=== PATIENT | female | born 1990 | race Caucasian/White ===

== ENCOUNTER 2016-08-11 17:07 | Emergency (ER) | payer BC ==
[2016-08-11 18:29] VITALS: BP 111/69
--- NOTE | 2016-08-13 10:35 | UC ---
Skin Complaint HPI - HPI Summary HPI Summary: THREE WEEKS OF SPREADING RASH ON LEFT LEG; HAD BEEN EXPOSED TWO WEEKS AGO TO FRIEND WITH RINGWORM. HAS NOT TRIED ANYTHING FOR TREATMENT. - History of Current Complaint Chief Complaint: UCSkin Time Seen by Provider: 08/11/16 19:13 Stated Complaint: RASH Hx Obtained From: Patient Hx Last Menstrual Period: one month ago Onset/Duration: Gradual Onset, Lasting Weeks, Still Present Skin Exposure Onset/Duration: Weeks Ago Onset Severity: Mild Current Severity: Mild Pain Intensity: 1 Pain Scale Used: 0-10 Numeric Location: Generalized - LEFT LEG Aggravating: Nothing Alleviating: Nothing Associated Signs & Symptoms: Positive: Rash Related History: Possible Reaction to: Environmental Exposure - Allergy/Home Medications Allergies/Adverse Reactions: Allergies Allergy/AdvReac Type Severity Reaction Status Date / Time No Known Allergies Allergy Verified 08/11/16 18:30 Review of Systems Constitutional: Negative Skin: Rash Eyes: Negative ENT: Negative Respiratory: Negative Cardiovascular: Negative Gastrointestinal: Negative Genitourinary: Negative Motor: Negative Neurovascular: Negative Musculoskeletal: Negative Neurological: Negative Psychological: Negative All Other Systems Reviewed And Are Negative: Yes PMH/Surg Hx/FS Hx/Imm Hx Previously Healthy: Yes - Surgical History Surgical History: Yes Surgery Procedure, Year, and Place: right hip surgery - Family History Known Family History: Negative: Diabetes Family History: NON CONTRIBUTORY - Social History Occupation: Employed Full-time Lives: With Family Alcohol Use: Occasionally Substance Use Type: None Smoking Status (MU): Never Smoked Tobacco - Immunization History Most Recent Influenza Vaccination: never Most Recent Tetanus Shot: unsure Physical Exam Triage Information Reviewed: Yes Appearance: Well-Appearing, No Pain Distress, Well-Nourished Vital Signs: Initial Vital Signs Temp 98.4 F 08/11/16 18:26 Pulse 82 08/11/16 18:26 Resp 18 08/11/16 18:26 BP 111/69 08/11/16 18:26 Pulse Ox 97 08/11/16 18:26 Vital Signs Reviewed: Yes Eye Exam: Normal ENT Exam: Normal Dental Exam: Normal Neck exam: Normal Respiratory Exam: Normal Respiratory: Positive: Chest non-tender, Lungs clear, Normal breath sounds, No respiratory distress Cardiovascular Exam: Normal Cardiovascular: Positive: RRR, No Murmur Abdominal Exam: Normal Musculoskeletal Exam: Normal Neurological Exam: Normal Psychological Exam: Normal Skin: Positive: rashes - Several diffuse small pruritic, circular or oval, erythematous, scaling patches on left leg. Earlier lesions are larger and noted with central clearing,and raised border on annular but irregular (ring-shaped) plaques. Course/Dx - Differential Diagnoses - Skin Complaint Differential Diagnoses: Drug Rash, Eczema, Impetigo, Tinea - Diagnoses Provider Diagnoses: LEFT LEG TINEA CORPORIS Discharge - Discharge Plan Condition: Stable Disposition: HOME Patient Education Materials: Tinea Corporis (ED) Referrals: [facility] [Outside] No Primary Care Phys,NOPCP [Primary Care Provider] - Additional Instructions: OVER THE COUNTER TOPICAL ANTIFUNGAL PRODUCTS ENDING IN 'AZOLE' SUCH (BUT NOT RESTRICTED TO) KETOCONAZOLE, CLOTRIMAZOLE, MICONAZOLE.
== END 2016-08-11 19:40 | disposition home or self-care (01) ==
LOC: UCEAST 17:07
DX: B35.4 Tinea corporis (principal)
CPT/HCPCS: 99211; G0463

== ENCOUNTER 2016-09-12 15:08 | Emergency (ER) | payer BC ==
[2016-09-12 17:19] VITALS: BP 100/60
--- NOTE | 2016-09-12 17:31 | UC ---
Complaint Female HPI - HPI Summary HPI Summary: [employer] HAD ABDOMINAL PAIN IN RIGHT LOWER ABDOMEN AND URGENCY WITH URINATION. NO FEVER. SYMPTOMS HAVE RESOLVED WHILE WAITING IN CLINIC FOR EVALUATION. NO DIARRHEA OR CONSTIPATION - History Of Current Complaint Chief Complaint: UCAbdominalPain Stated Complaint: ABD PAIN Time Seen by Provider: 09/12/16 16:18 Hx Obtained From: Patient Hx Last Menstrual Period: 3 months ago due to control Onset/Duration: Sudden Onset, Lasting Hours, Resolved Timing: Intermittent Severity Initially: Moderate Severity Currently: None Character: Sharp, Burning Aggravating Factor(s): Urination Associated Signs And Symptoms: Positive: Negative. Negative: Fever, Back Pain, Vaginal Bleeding/Discharge, Vaginal Discharge, Nausea, Vomiting(# Of Episodes =) - Risk Factors Ectopic Risk Factor: Negative Ovarian Torsion Risk Factor: Negative - Allergies/Home Medications Allergies/Adverse Reactions: Allergies Allergy/AdvReac Type Severity Reaction Status Date / Time No Known Allergies Allergy Verified 09/12/16 15:15 PMH/Surg Hx/FS Hx/Imm Hx Previously Healthy: Yes - Surgical History Surgical History: Yes Surgery Procedure, Year, and Place: right hip surgery - Family History Known Family History: Negative: Diabetes Family History: NON CONTRIBUTORY - Social History Occupation: Employed Full-time Lives: With Family Alcohol Use: Occasionally Substance Use Type: None Smoking Status (MU): Never Smoked Tobacco - Immunization History Most Recent Influenza Vaccination: never Most Recent Tetanus Shot: unsure Review of Systems Constitutional: Negative Skin: Negative Eyes: Negative ENT: Negative Respiratory: Negative Cardiovascular: Negative Gastrointestinal: Negative Genitourinary: Frequency, Urgency Motor: Negative Neurovascular: Negative Musculoskeletal: Negative Neurological: Negative Psychological: Negative All Other Systems Reviewed And Are Negative: Yes Physical Exam Triage Information Reviewed: Yes Appearance: Well-Appearing, No Pain Distress, Well-Nourished Vital Signs: Initial Vital Signs Temp 98.8 F 09/12/16 15:12 Pulse 70 09/12/16 15:12 Resp 16 09/12/16 15:12 BP 128/67 09/12/16 15:12 Pulse Ox 99 09/12/16 15:12 Vital Signs Reviewed: Yes Eye Exam: Normal ENT Exam: Normal ENT: Positive: Normal ENT inspection Dental Exam: Normal Neck exam: Normal Neck: Positive: Supple, Nontender Respiratory Exam: Normal Respiratory: Positive: Chest non-tender, Lungs clear, Normal breath sounds, No respiratory distress, No accessory muscle use Cardiovascular Exam: Normal Cardiovascular: Positive: RRR, No Murmur, Pulses Normal Abdominal Exam: Normal Abdomen Description: Positive: Nontender, No Organomegaly Musculoskeletal Exam: Normal Neurological Exam: Normal Psychological Exam: Normal Skin Exam: Normal Complaint Female Dx - Differential Dx/Diagnosis Differential Diagnosis/HQI/PQRI: Appendicitis, Ovarian Cyst, Ovarian Torsion, Urinary Tract Infection Provider Diagnoses: URINARY TRACT INFECTION Discharge - Discharge Plan Condition: Stable Disposition: HOME Prescriptions: Phenazopyridine TAB* [Pyridium 100 mg TAB*] 100 mg PO TID #15 tab Sulfamethox/Trimethoprim DS* [Bactrim DS 800/160 TAB*] 1 tab PO BID #10 tab Patient Education Materials: Urinary Tract Infection in Women (ED) Referrals: [facility] [place] [facility] [Outside] No Primary Care Phys,NOPCP [Primary Care Provider] - Additional Instructions: CURRENTLY YOUR ABDOMINAL PAIN SYMPTOMS HAVE RESOLVED. PLEASE SEEK IMMEDIATE EVALUATION AT EMERGENCY DEPARTMENT IF ABDOMINAL PAIN RETURNS, OR IF NEW SYMPTOMS DEVELOP. PRIMARY CARE: There are four major types of clinical preventive care: immunizations, screening , behavioral counseling (sometimes referred to as lifestyle changes), and chemoprevention. All four apply throughout the life span. It is important to establish and to have access to a Primary Care Physician, not only for follow- up regrding acute and chronic problems, but also for preventative care.
== END 2016-09-12 17:32 | disposition home or self-care (01) ==
LOC: UCEAST 15:08
DX: N39.0 Urinary tract infection, site not specified (principal)
CPT/HCPCS: 81003; 84702; 87086; 99212; G0463

== ENCOUNTER 2017-09-16 17:19 | Emergency (ER) | payer BC ==
[2017-09-16 17:36] VITALS: BP 105/67
--- NOTE | 2017-09-16 17:49 | ED ---
Lower Extremity - HPI Summary HPI Summary: 27-year-old female presents with left hip pain for the past couple weeks. She states she has history of hip pain. She denies any injury. She admits to occasional back pain. No saddle anesthesia or loss of bowel or bladder. No fevers. she may have gotten bitten by a tick a month ago. She had a rash on the posterior aspect of her legs that she never got checked out. She denies any weakness. No numbness or tingling. She states she has also been fatigued. She admits to occasional headaches. She is concerned that she has Lyme disease. States the pain in hips that radiates down her entire leg. She states she has been having a dull pain in hip. She hasn't tried anything for her symptoms. She had a previous hip surgery on the right hip. She has no medical conditions. - History of Current Complaint Chief Complaint: UCLowerExtremity Stated Complaint: LYME SYMPTOMS Time Seen by Provider: 09/16/17 17:39 Hx Last Menstrual Period: [id number] Pain Intensity: 4 - Allergies/Home Medications Allergies/Adverse Reactions: Allergies Allergy/AdvReac Type Severity Reaction Status Date / Time No Known Allergies Allergy Verified 09/16/17 17:36 Home Medications: Home Medications NK [No Home Medications Reported] 09/16/17 [History Confirmed 09/16/17] PMH/Surg Hx/FS Hx/Imm Hx Endocrine/Hematology History: Denies: Hx Diabetes, Hx Thyroid Disease Cardiovascular History: Denies: Hx Hypertension Respiratory History: Denies: Hx Asthma, Hx Chronic Obstructive Pulmonary Disease (COPD) GI History: Denies: Hx Ulcer - Surgical History Surgery Procedure, Year, and Place: right hip surgery, 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 Infectious Disease History: No Infectious Disease History: Denies: Hx Hepatitis, Hx Human Immunodeficiency Virus (HIV), History Other Infectious Disease, Traveled Outside the [place] in Last 30 Days - Family History Known Family History: Negative: Diabetes Family History: NON CONTRIBUTORY - Social History Alcohol Use: Occasionally Substance Use Type: Reports: None Smoking Status (MU): Never Smoked Tobacco Review of Systems Negative: Fever Negative: Chest Pain Negative: Shortness Of Breath Positive: Myalgia - left hip pain All Other Systems Reviewed And Are Negative: Yes Physical Exam Triage Information Reviewed: Yes Vital Signs On Initial Exam: Initial Vitals Temp Pulse Resp BP Pulse Ox 98.1 F 63 16 105/67 100 09/16/17 17:28 09/16/17 17:28 09/16/17 17:28 09/16/17 17:28 09/16/17 17:28 Vital Signs Reviewed: Yes Appearance: Positive: Well-Appearing Skin: Positive: Warm, Dry Head/Face: Positive: Normal Head/Face Inspection Eyes: Positive: Normal, Conjunctiva Clear ENT: Positive: Pharynx normal Respiratory/Lung Sounds: Positive: Clear to Auscultation, Breath Sounds Present Cardiovascular: Positive: Normal, RRR Musculoskeletal: Positive: Strength/ROM Intact - left hip, Other - good pulses, neg TRINIDAD test, mild tenderness SI joint, neg SLR, sensation grossly intact. Negative: Edema Left Neurological: Positive: Normal, Normal Gait Psychiatric: Positive: Normal Diagnostics - Vital Signs Vital Signs Temp Pulse Resp BP Pulse Ox 09/16/17 17:28 98.1 F 63 16 105/67 100 - Laboratory Lab Statement: Any lab studies that have been ordered have been reviewed, and results considered in the medical decision making process. Lower Extremity Course/Dx - Course Course Of Treatment: 27-year-old female presents with left hip pain for the past couple weeks. She states she has history of hip pain. She denies any injury. She admits to occasional back pain. No saddle anesthesia or loss of bowel or bladder. No fevers. she may have gotten bitten by a tick a month ago. She had a rash on the posterior aspect of her legs that she never got checked out. She denies any weakness. No numbness or tingling. She states she has also been fatigued. She admits to occasional headaches. She is concerned that she has Lyme disease. States the pain in hips that radiates down her entire leg. She states she has been having a dull pain in hip. She hasn't tried anything for her symptoms. She had a previous hip surgery on the right hip. She has no medical conditions. On exam has full range of motion. Negative pain. Neurovascularly intact. Normal gait. pain likely either sciatica or due to arthritis. will get lyme per patient request. patient understand and agrees with plan. - Diagnoses Differential Diagnosis/HQI/PQRI: Positive: Fracture (Closed), Sprain, Strain Provider Diagnoses: Left hip pain Discharge - Sign-Out/Discharge Documenting (check all that apply): Patient Departure - Discharge Plan Condition: Good Disposition: HOME Patient Education Materials: Hip Pain (ED) Referrals: [facility] [Outside] Additional Instructions: Take Tylenol or ibuprofen every 6 hours as needed for pain Apply ice Establish care with primary to follow up Return to ED if develop any new or worsening symptoms - Billing Disposition and Condition Condition: GOOD Disposition: Home
== END 2017-09-16 18:03 | disposition home or self-care (01) ==
LOC: UCEAST 17:19
DX: M25.552 Pain in left hip (principal); M54.9 Dorsalgia, unspecified; R21 Rash and other nonspecific skin eruption; R53.83 Other fatigue; R51 Headache; M25.551 Pain in right hip; M79.606 Pain in leg, unspecified
CPT/HCPCS: 86618; 99211; G0463